=== PATIENT | female | born 1950 | race Caucasian/White ===

== ENCOUNTER 2018-08-28 05:56 | Inpatient (IN) ==
[2018-08-28] MEDS ORDERED: Chlorhexidine Gluconate 2% 1 Pack (2 Cloths) TOPICAL ONE (06:27)
[2018-08-28] MEDS ORDERED: Metoprolol Tartrate 25 MG Tablet PO ONE (06:27)
[2018-08-28] MEDS ORDERED: Sodium Chlor 0.9% Inj 500 ML IV.SIG SCH (07:00)
[2018-08-28] MEDS ORDERED: Vancomycin Inj 1,000 MG in Sodium Chlor 0.9% Inj 250 ML IV.SIG SCH (07:00)
[2018-08-28] MEDS ORDERED: Bupivacaine/Epinephrine 0.5% Inj 50 ML Vial ONE (07:25)
[2018-08-28] MEDS ORDERED: Thrombin Topical Soln 5,000 UNIT Vial TOPICAL ONE (07:25)
[2018-08-28] MEDS ORDERED: Gelatin Size 100 Topical Foam ONE (07:25)
[2018-08-28] MEDS ORDERED: Neostigmine Inj 5 MG/5 ML Syringe IV.PUSH ONE (08:35)
[2018-08-28] MEDS ORDERED: Normosol-R pH 7.4 Inj 1,000 ML IV.CONT ONE (08:35)
[2018-08-28] MEDS ORDERED: Phenylephrine/NS 1000 MCG/10ML Syringe IV.PUSH ONE (08:35)
[2018-08-28] MEDS ORDERED: Glycopyrrolate Inj 1 MG/5 ML Syringe IV.PUSH ONE (08:35)
[2018-08-28] MEDS ORDERED: Lidocaine PF 1% Inj 5 ML Syringe OTHER ONE (08:35)
[2018-08-28] MEDS: Sod Chloride 0.9% Inj 1,000 ML IV.SIG SCH (11:34)
[2018-08-28] MEDS ORDERED: Menthol 5.8 MG Lozenge BUCCAL PRN (12:15)
[2018-08-28] MEDS ORDERED: Acetaminophen 325 MG Tablet PO PRN (12:15)
[2018-08-28] MEDS ORDERED: Calcium Gluconate Inj 1 GM in Sodium Chlor 0.9% Inj 100 ML IV.SIG PRN (12:15)
[2018-08-28] MEDS ORDERED: Potassium Chlor 20 mEq Premix 20 MEQ/100 ML PIGGYBACK IV.SIG PRN (12:15)
[2018-08-28] MEDS ORDERED: Magnesium Sulfate Inj 2 GM in Sodium Chlor 0.9% Inj 96 ML IV.SIG PRN (12:15)
[2018-08-28] MEDS ORDERED: Morphine Inj 4 MG/ML Vial IV.PUSH PRN (12:15)
[2018-08-28] MEDS ORDERED: Aluminum/Magnesium/Simethacone Susp 30 ML UDC PO PRN (12:15)
[2018-08-28] MEDS ORDERED: Bisacodyl 10 MG Supp RECTAL PRN (12:15)
[2018-08-28] MEDS ORDERED: fentaNYL Citrate Inj 100 MCG/2 ML Ampul ONE (12:20)
--- NOTE | 2018-08-28 12:27 | P.OP ---
- Preoperative Diagnosis (1) Chronic low back pain with bilateral sciatica (2) Lumbar stenosis with neurogenic claudication (3) Lumbar degenerative disc disease (4) Spondylolisthesis, lumbar region (5) Lumbar facet arthropathy Date of procedure: 08/28/18 Procedure: Lumbar L4-5 transforaminal interbody fusion; bilateral L4-5 decompressive laminotomy with medial facetectomy; L4-5 pedicle screw fixation; L4-5 interbody cage placement; microsurgical technique Anesthesia: GETA Surgeon: Martin Salmon MD Automatic Drill Operator: Judie Toney Estimated blood loss (mL): 50 Operation and Findings: This was a difficult case due to the patient body habitus and morbid obesity. The [id number] details of the procedure, indications, alternatives, risks and potential complications were fully discussed with the patient. The patient fully understood. All the questions were answered. No guarantees were given. The patient voiced requesting the procedure and provided informed consents. The patient was offered the alternative of delaying the procedure and continuing with nonsurgical management. Prior to the procedure, the surgical incision was marked in the preoperative surgical holding room, and the procedure, risks, and potential complications revisited with the patient. Placement of electrodes for intraoperative neurophysiological monitoring was completed. The patient was taken to the operative room, and following induction of general anesthesia, endotracheal intubation was performed. A Leahy catheter, bilateral POPEYE hose and sequential compression devices were placed and kept throughout the procedure. The patient was positioned prone, over a Sina table over a Neal frame. All pressure in the preoperative surgical holding room points were carefully padded. The eyes were tapped shut after ointment was applied by the anesthesiologist to prevent corneal abrasion. A Kalpesh hugger was placed over the exposed lower body to maintain control of the core body temperature. The lumbar region was prepped and draped in the usual sterile fashion. Once the patient was positioned, a localizing cross-table lateral x-ray was performed with a C-arm. A right paramedian incision was outlined on the skin approximately 3cm from the midline. The skin incision made with a #10 blade. Small bleeders were controlled with the cautery. The dissection was then carried out into deeper planes and through the thoracolumbar fascia with a Bovie. The intermuscular septum was identified and the muscles were blunted dissected along the septum. The facets and transverse process at the right L4-5 levels were exposed and the proper anatomical landmarks were identified. A microsurgical self-retaining retractor was placed on the incision, and a localizing lateralizing cross-table x-ray was performed. Intraoperative microscope magnification used for further dissection. There was significant facet and ligamentum flavum hypertrophy noted. The right L4-5 facet was resected with a drill bit along with the lamina and there was severe foraminal and lateral recess stenosis from hypertrophied ligamentum flavum and facet which was decompressed. With gentle thecal sac retraction from the left L4-5 laminotomies the hypertrophied right L4-5 ligamentum flavum and facet were also resected with Kerrisons and the lateral recess/spinal canal decompressed circumferentially. There was disc height collapse with the spondylolisthesis from the degeneration along with disc protrusion also leading to the foraminal stenosis. Epidural hemostasis was achieved with bipolar cautery and Gelfoam with thrombin. Subsequently entered into the disc space at the L4-5 level with a #15 blade and lorie were used for discectomy. I then placed PEEK cage packed with local autograft bone and more local autograft bone was packed adjacent to the cage in interspace for added interbody fusion. With placement of the cage, I was able to distract the interspace and opened up the foramen further bilaterally. Subsequently in order to facilitate the fusion and provide stabilization, pedicle screw fixation was undertaken using [place] spine screws on entry point at the right L4 and L5 level at the junction of the transverse process and facet through the pedicles into the body. Subsequently using AP and lateral fluoroscopy tap and screw placement. The screws were then connected with a reilly and locked in place with caps. The construct appeared very secure at this point. The area was then copiously irrigated with Vancomycin solution and powder. The retractors were removed and the bipolar cautery used for hemostasis. The muscle fascia was then approximated using 2-0 Vicryl interrupted stitches and then 3-0 Vicryl subcuticular stitches also placed in interrupted fashion. The final skin closure was completed with Mastisol and Steri-Strips. A sterile dressing was then applied. The patient then turned in supine position, extubated and taken to recovery room. There were no intraoperative complications. All sponge and needle counts were correct at the end of procedure. Estimated blood loss about 50 ml.
[2018-08-28] MEDS ORDERED: *morphine SULFATE 4 MG/ML PERIprocedure ONLY ONE ×2 (12:44→14:01)
--- NOTE | 2018-08-28 13:40 | XR ---
EXAM DATE: 08/28/2018 12:00 AM EDT AGE/SEX: 67 years / Female INDICATIONS: Post-op L4-L5 posterior lumbar fusion. CLINICAL DATA: This is the patient's initial encounter. Patient reports that signs and symptoms have been present for 1 day and indicates a pain score of Nonresponsive. MEDICAL/SURGICAL HISTORY: Non-responsive. Non-responsive. COMPARISON: No prior exams available for comparison. FINDINGS: 2 fluoroscopic images of the lower lumbar spine demonstrate intradiscal and left transpedicular screw and reilly fixation at L4-5. Hardware appears grossly well-positioned and intact. Vertebral body height s are maintained. Sagittal alignment is grossly intact. CONCLUSION: 1. Posterior L4-5 fixation, as above. Electronically signed by: Jah Martinez MD 08/28/2018 1:39 PM EDT
[2018-08-28] MEDS: Sod Chloride 0.9% Inj 1,000 ML IV.CONT SCH ×2 (15:01→23:30)
[2018-08-28 17:26] LABS: Baso % (Auto) 0.2 % (0.0-2.0); Hematocrit 36.3 % (35.0-46.0); Hemoglobin 12.8 gm/dL (11.6-15.3); Lymph # (Auto) 0.7 th/mm3 (1.0-4.8); Lymph % (Auto) 7.8 % (9.0-44.0); Mean Corpuscular HGB Conc 35.2 % (32.0-36.0); Mean Corpuscular Hemoglobin 33.9 pg (27.0-34.0); Mean Corpuscular Volume 96.3 fL (80.0-100.0); Mean Platelet Volume 8.9 fL (7.0-11.0); Mono # (Auto) 0.5 th/mm3 (0.0-0.9); Mono % (Auto) 5.3 % (0.0-8.0); Neut # (Auto) 8.2 th/mm3 (1.8-7.7); Neut % (Auto) 86.7 % (16.0-70.0); Platelet Count 248 th/mm3 (150-450); Red Blood Count 3.77 mil/mm3 (4.00-5.30); Red Cell Distribution Width 13.3 % (11.6-17.2); White Blood Count 9.5 th/mm3 (4.0-11.0)
[2018-08-28 17:41] LABS: Anion Gap 3 meq/L (5-15); Blood Urea Nitrogen 9 mg/dL (7-18); Calcium 8.1 mg/dL (8.5-10.1); Carbon Dioxide 26.7 meq/L (21.0-32.0); Chloride 108 meq/L (98-107); Glomerular Filtration Rate Greater Than 89 mL/min (>89); Glucose,Random 153 mg/dL (74-106); Potassium 3.7 meq/L (3.5-5.1); Sodium 138 meq/L (136-145)
[2018-08-28] MEDS: Senna/Docusate Sodium 8.6/50 MG Tablet PO SCH (20:47)
[2018-08-28] MEDS ORDERED: Zolpidem Tartrate 5 MG Tablet PO PRN (21:00)
[2018-08-29] MEDS: amLODIPine 5 MG Tablet PO SCH (08:22)
[2018-08-29] MEDS: Pantoprazole Sodium 20 MG DR Tablet PO SCH (08:23)
[2018-08-29] MEDS: Senna/Docusate Sodium 8.6/50 MG Tablet PO SCH ×2 (08:23→21:08)
[2018-08-29] MEDS: Sod Chloride 0.9% Inj 1,000 ML IV.CONT SCH (08:27)
[2018-08-29] MEDS: Sod Chloride 0.9% Inj 1,000 ML IV.SIG SCH (08:28)
--- NOTE | 2018-08-29 10:30 | P.PNNS ---
Subjective Interval history: Pt s/p L4/L5 TLIF with cage and pedicle screw fixation. No radiculopathy in LEs. Pt with incisional soreness. Two pills of Alma causes nausea. Physical Exam Vital signs: Vital Signs 08/28/18 12:12 08/28/18 12:30 08/28/18 12:45 Temperature 97.6 F Pulse Rate 90 80 78 Respiratory Rate 18 18 18 Blood Pressure 112/59 L 110/58 L 113/66 Pulse Oximetry 96 96 96 08/28/18 13:00 08/28/18 13:15 08/28/18 14:00 Temperature Pulse Rate 74 80 79 Respiratory Rate 18 18 18 Blood Pressure 107/55 L 104/55 L 103/59 L Pulse Oximetry 96 96 96 08/28/18 14:50 08/28/18 15:32 08/28/18 16:56 Temperature 97.6 F 97.1 F L Pulse Rate 77 72 Respiratory Rate 18 18 16 Blood Pressure 107/58 L 188/57 H Pulse Oximetry 96 97 08/28/18 20:00 08/28/18 20:49 08/29/18 00:00 Temperature 97.3 F L 98.3 F Pulse Rate 70 66 Respiratory Rate 16 16 17 Blood Pressure 104/57 L 102/62 Pulse Oximetry 98 98 08/29/18 03:39 08/29/18 03:40 08/29/18 03:51 Temperature 97.4 F L 97.4 F L Pulse Rate 63 63 Respiratory Rate 20 18 20 Blood Pressure 114/62 114/62 Pulse Oximetry 98 08/29/18 08:00 08/29/18 08:53 Temperature 97.7 F Pulse Rate 61 Respiratory Rate 16 18 Blood Pressure 102/56 L Pulse Oximetry 96 Intake & Output 08/28/18 08/29/18 08/29/18 18:59 06:59 18:59 Intake Total 2050 / 2050 1100 / 1100 1100 / 1100 Output Total 1075 / 1075 800 / 800 Balance 975 / 975 300 / 300 1100 / 1100 Weight 62.8 kg Intake: IV 1350 / 1350 1100 / 1100 1100 / 1100 NS Inj 1,000 ML @ 100 mls/hr IV 1000 / 1000 1000 / 1000 .CONT .Q10H ALL Rx#:[id number] LR 1000 mL Inj 1,000 ML @ 30 1000 / 1000 mls/hr IV.SIG .Q24H ALL Rx#: [id number] Vancomycin Inj 1,000 MG In NS 250 / 250 Inj 250 ML @ 250 mls/hr IV.SIG [employer]TE[employer]OR ALL Rx#:[id number] Ancef Inj 1,000 MG In NS Inj 100 / 100 100 / 100 100 / 100 100 ML @ 200 mls/hr IV.SIG Q8H ALL Rx#:[id number] Anesthesia Amount 700 / 700 Output: Estimated Blood Loss 50 / 50 Urine Amount (Catheter) 1025 / 1025 800 / 800 Indwelling Urethral Catheter 1025 / 1025 800 / 800 Other: # Voids 1 Date of Last Bowel Movement 08/27/18 08/27/18 - Constitutional no acute distress, cooperative - Routine HEENT Exam Head: Present: normocephalic Eye: Present: PERRL. Absent: conjunctival icterus - Routine Neck Exam Present: trachea midline - Routine Respiratory Exam Present: CTA bilaterally. Absent: respiratory distress, rhonchi, wheezes - Routine Cardiovascular Exam Present: RRR, S1, S2. Absent: murmur - Routine Abdominal Exam Present: soft, normoactive bowel sounds. Absent: distended, firm - Routine Skin Exam Absent: cyanosis, erythema Comments: Pt log rolled and incision clean and dry without signs of infection or complication. New bandage placed. - Routine Neurological Exam Present: alert, moving all extremities, normal speech. Absent: sensory deficit , motor deficit, altered mental status - Routine Psychiatric Exam Present: normal affect, cooperative. Absent: anxious, agitated - Urinary Catheter Management Indwelling Urethral Catheter Cath placed during this visit: yes, but has since been removed by the nurse Reason for continuing: Decision to DC catheter Insertion date: 08/28/18 Insertion time: 08:45 Removal date: 08/29/18 Removal time: 05:55 Assessment and Plan - Assessment (1) Lumbar stenosis with neurogenic claudication Code(s): M48.062 - Spinal stenosis, lumbar region with neurogenic claudication Status: Chronic (2) Lumbar degenerative disc disease Code(s): M51.36 - Other intervertebral disc degeneration, lumbar region Status : Chronic (3) Chronic low back pain with bilateral sciatica Code(s): M54.41 - Lumbago with sciatica, right side; M54.42 - Lumbago with sciatica, left side; G89.29 - Other chronic pain Status: Chronic (4) Spondylolisthesis, lumbar region Code(s): M43.16 - Spondylolisthesis, lumbar region Status: Chronic (5) Lumbar facet arthropathy Code(s): M47.816 - Spondylosis without myelopathy or radiculopathy, lumbar region Status: Chronic - Plan A: 67 y/o FM s/p L4/L5 TLIF with cage and pedicle screw fixation. Pt complains of incisional pain. She cannot take two Alma as they make her nauseated. P: Dr. Salmon approved d/c two norco and prescribe Alma q 3 hours instead of q 4. Continue with PT Continue with incisional care.
--- NOTE | 2018-08-30 09:11 | P.PNNS ---
Subjective Interval history: Pt awake and alert. Sitting up in chair. Complains of right anterior leg pain and incisional pain. Complains of thoracic area muscle spasms. <Esau De León - Last Filed: 08/30/18 09:07> Physical Exam Vital signs: Vital Signs 08/29/18 12:00 08/29/18 12:29 08/29/18 15:45 Temperature 97.4 F L Pulse Rate 61 Respiratory Rate 16 18 18 Blood Pressure 96/58 L Pulse Oximetry 95 08/29/18 16:00 08/29/18 19:41 08/29/18 19:48 Temperature 98.1 F 97.7 F Pulse Rate 70 75 Respiratory Rate 16 17 18 Blood Pressure 98/59 L 96/54 L Pulse Oximetry 94 L 92 L 08/29/18 23:24 08/30/18 05:01 Temperature 98.8 F Pulse Rate 77 Respiratory Rate 17 18 Blood Pressure 101/63 Pulse Oximetry 95 Intake & Output 08/29/18 08/30/18 08/30/18 18:59 06:59 18:59 Intake Total 1520 / 1520 480 / 480 Balance 1520 / 1520 480 / 480 Weight 62.8 kg Intake: IV 1100 / 1100 NS Inj 1,000 ML @ 100 mls/hr IV 1000 / 1000 .CONT .Q10H ALL Rx#:[id number] Ancef Inj 1,000 MG In NS Inj 100 / 100 100 ML @ 200 mls/hr IV.SIG Q8H ALL Rx#:[id number] Oral 420 / 420 480 / 480 Other: # Voids 2 1 Date of Last Bowel Movement 08/27/18 # Bowel Movements 0 0 - Constitutional no acute distress, average body habitus, cooperative - Routine HEENT Exam Head: Present: normocephalic Eye: Present: PERRL. Absent: conjunctival icterus ENT: Present: oropharynx clear - Routine Respiratory Exam Present: CTA bilaterally. Absent: respiratory distress, rhonchi, wheezes - Routine Cardiovascular Exam Present: RRR, S1, S2. Absent: murmur - Routine Abdominal Exam Present: soft, normoactive bowel sounds. Absent: distended, firm - Routine Skin Exam Absent: cyanosis, erythema - Routine Neurological Exam Present: alert, moving all extremities, normal speech. Absent: sensory deficit , motor deficit, altered mental status - Routine Psychiatric Exam Present: normal affect, cooperative. Absent: anxious, agitated - Urinary Catheter Management Indwelling Urethral Catheter Cath placed during this visit: yes, but has since been removed by the nurse Reason for continuing: Decision to DC catheter Insertion date: 08/28/18 Insertion time: 08:45 Removal date: 08/29/18 Removal time: 05:55 <Esau De León - Last Filed: 08/30/18 09:07> Vital signs: Vital Signs 08/29/18 19:41 08/29/18 19:48 08/29/18 23:24 Temperature 97.7 F 98.8 F Pulse Rate 75 77 Respiratory Rate 17 18 17 Blood Pressure 96/54 L 101/63 Pulse Oximetry 92 L 95 08/30/18 05:01 08/30/18 08:00 08/30/18 12:00 Temperature 99.6 F 98 F Pulse Rate 80 72 Respiratory Rate 18 18 16 Blood Pressure 113/57 L 97/53 L Pulse Oximetry 94 L 95 08/30/18 15:49 Temperature 98.1 F Pulse Rate 66 Respiratory Rate 18 Blood Pressure 94/51 L Pulse Oximetry 94 L Intake & Output 08/29/18 08/30/18 08/30/18 18:59 06:59 18:59 Intake Total 1520 / 1520 480 / 480 Balance 1520 / 1520 480 / 480 Weight 62.8 kg Intake: IV 1100 / 1100 NS Inj 1,000 ML @ 100 mls/hr IV 1000 / 1000 .CONT .Q10H ALL Rx#:[id number] Ancef Inj 1,000 MG In NS Inj 100 / 100 100 ML @ 200 mls/hr IV.SIG Q8H ALL Rx#:[id number] Oral 420 / 420 480 / 480 Other: # Voids 2 1 Date of Last Bowel Movement 08/27/18 08/27/18 # Bowel Movements 0 0 - Urinary Catheter Management Indwelling Urethral Catheter Cath placed during this visit: no <Martin Salmon - Last Filed: 08/30/18 16:59> Assessment and Plan - Assessment (1) Lumbar stenosis with neurogenic claudication Code(s): M48.062 - Spinal stenosis, lumbar region with neurogenic claudication Status: Chronic (2) Lumbar degenerative disc disease Code(s): M51.36 - Other intervertebral disc degeneration, lumbar region Status : Chronic (3) Chronic low back pain with bilateral sciatica Code(s): M54.41 - Lumbago with sciatica, right side; M54.42 - Lumbago with sciatica, left side; G89.29 - Other chronic pain Status: Chronic (4) Spondylolisthesis, lumbar region Code(s): M43.16 - Spondylolisthesis, lumbar region Status: Chronic (5) Lumbar facet arthropathy Code(s): M47.816 - Spondylosis without myelopathy or radiculopathy, lumbar region Status: Chronic - Plan A: 67 y/o FM s/p L4/L5 TLIF with cage and pedicle screw fixation. Pt complains of incisional pain and right anterior thigh pain. P: Will give pt one shot of Toradol today and start Gabapentin tonight. Continue with PT Continue with incisional care. Anticipate discharge tomorrow. <Esau De León - Last Filed: 08/30/18 09:07> - Attending Attestation The exam, history, and the medical decision-making described in the above note were completed with the assistance of the mid-level provider. I reviewed and agree with the findings presented. I attest that I had a [id number] encounter with the patient on the same day, and personally performed and documented my assessment and findings in the medical record. <Martin Salmon - Last Filed: 08/30/18 16:59>
[2018-08-30] MEDS: amLODIPine 5 MG Tablet PO SCH (11:40)
[2018-08-30] MEDS: Senna/Docusate Sodium 8.6/50 MG Tablet PO SCH ×2 (11:40→20:06)
[2018-08-30] MEDS: Pantoprazole Sodium 20 MG DR Tablet PO SCH (11:40)
[2018-08-30] MEDS: Sod Chloride 0.9% Inj 1,000 ML IV.SIG SCH (19:59)
[2018-08-30] MEDS: Gabapentin 300 MG Capsule PO SCH (20:06)
[2018-08-31] MEDS: Sod Chloride 0.9% Inj 1,000 ML IV.SIG SCH (07:19)
[2018-08-31] MEDS: Pantoprazole Sodium 20 MG DR Tablet PO SCH (08:10)
[2018-08-31] MEDS: Senna/Docusate Sodium 8.6/50 MG Tablet PO SCH ×2 (08:10→21:24)
[2018-08-31] MEDS: amLODIPine 5 MG Tablet PO SCH (10:23)
--- NOTE | 2018-08-31 21:01 | XR ---
EXAM DATE: 08/31/2018 12:00 AM EDT AGE/SEX: 67 years / Female INDICATIONS: Post laminectomy pain. Laminectomy 08/28 CLINICAL DATA: This is the patient's subsequent encounter. Patient reports that signs and symptoms h ave been present for 2 days and indicates a pain score of 10/10. MEDICAL/SURGICAL HISTORY: . Hypertension. . Cholecystectomy. Hysterectomy COMPARISON: No prior exams available for comparison. FINDINGS: Previous fusion across L4-5. Osteopenia. Mild rotatory levoscoliosis. No acute fracture. No spondylol isthesis. Moderate to severe degenerative disc disease at T12-L1. CONCLUSION: No acute bony abnormality. Previous right-sided pedicle screw and reilly fixation across L4-5 with right -sided laminectomy. Bones appear osteopenic. No acute fracture. Electronically signed by: Mayur Welsh MD 08/31/2018 9:00 PM EDT
[2018-08-31] MEDS: Gabapentin 300 MG Capsule PO SCH ×2 (21:24→21:25)
--- NOTE | 2018-08-31 21:52 | CT ---
EXAM DATE: 08/31/2018 8:44 PM EDT AGE/SEX: 67 years / Female INDICATIONS: Lower back pain, radiculopathy. CLINICAL DATA: This is the patient's initial encounter. Patient reports that signs and symptoms have been present for 1 day and indicates a pain score of 10/10. MEDICAL/SURGICAL HISTORY: Hypertension. Gastroesophageal reflux disease. Spinal stenosis. Herniate d disc. Degenerative Disc Disease. Scoliosis. Hysterectomy. Cholecystectomy. Fusion, lumbar. RADIATION DOSE: 33.90 CTDI (mGy) COMPARISON: [facility] – [place], [place] ABDOMEN & PELVIS W/O CONTRAST, 08/18/2018. . TECHNIQUE: Contiguous axial images were acquired with a multirow detector CT scanner without contras t. Multiplanar reconstructions in the sagittal and coronal plane were also performed. Using automate d exposure control and adjustment of the mA and/or kV according to patient size, radiation dose was k ept as low as reasonably achievable to obtain optimal diagnostic quality images. DICOM format image data is available electronically for review and comparison. FINDINGS: There is mild levoconvex curvature centered around L2. Approximately 4 mm of degenerative retrolisthe sis at T12/L1. No acute fractures or other subluxations are demonstrated of the lumbar spine. Vertebr al bodies have normal height. T12-L1: The disc has moderate loss of height and vacuum phenomena. There are are sclerotic changes o f vertebral body endplates. Grade 1 degenerative retrolisthesis. There is a small to moderate, circum ferential disc osteophyte complex and mild bilateral facet osteoarthritis. There is mild spinal steno sis. There is severe right and moderate to severe left foraminal stenosis. L1-L2: The disc has slight loss of height. There is diffuse bulging of the disc annulus and moderate bilateral facet osteoarthritis with thickening of the ligamentum flavum. There is mild spinal stenos is. There is mild bilateral foraminal stenosis. L2-L3: The disc has slight loss of height. There is diffuse bulging of the disc annulus and moderate bilateral facet osteoarthritis with thickening of the ligamentum flavum. There is mild spinal stenos is and mild to moderate right, mild left foraminal stenosis. L3-L4: The disc has mild loss of height. There is diffuse bulging of the disc annulus and moderate b ilateral facet osteoarthritis and thickening of the ligamentum flavum is mild spinal stenosis and mil d bilateral foraminal stenosis.. L4-L5: Recent fusion with interbody and right posterior instrumentation. Alignment is near-anatomic. Right hemilaminectomy changes are noted. There is an approximately 2.1 cm collection of fluid and a few small bubbles of gas in the bony resection bed, for example series 310 image 24 and series 306 im age 25. There is associated mild mass effect on the right side of the thecal sac. There appears to be more significant mass effect in the region of the right foramen and concerning for associated imping ement of the exiting right L4 nerve root. Degenerative changes contribute to mild left foraminal sten osis. L5-S1: Disc height within normal limits. There is diffuse bulging of the disc annulus and moderate b ilateral facet osteoarthritis with thickening of the ligamentum flavum. No significant spinal stenosi s. There is mild bilateral foraminal stenosis. CONCLUSION: 1. Recent fusion and right hemilaminectomy changes at L4/L5 as described. In the hemilaminectomy becca gical bed is an approximately 2.1 cm fluid collection and a few bubbles of gas, presumably seroma, wi th associated mass effect on the right L4/L5 foramen and to a much lesser extent the right side of th e thecal sac. 2. Other findings appear chronic/degenerative. Considerable degrees of foraminal stenosis are noted, especially T12/L1. Generally only mild degrees of spinal stenosis. Electronically signed by: Yohannes Molina MD 08/31/2018 9:50 PM EDT
[2018-09-01] MEDS: Sod Chloride 0.9% Inj 1,000 ML IV.SIG SCH (05:32)
[2018-09-01] MEDS: Pantoprazole Sodium 20 MG DR Tablet PO SCH ×2 (07:35→09:35)
[2018-09-01] MEDS: Gabapentin 300 MG Capsule PO SCH ×4 (07:35→17:22)
[2018-09-01] MEDS: Senna/Docusate Sodium 8.6/50 MG Tablet PO SCH ×3 (07:35→21:22)
[2018-09-01] MEDS: amLODIPine 5 MG Tablet PO SCH (09:35)
--- NOTE | 2018-09-01 12:13 | P.PNNS ---
Subjective Interval history: Significant right leg paresthetic pain develops when she is upright particularly. Imaging shows stable hardare right L4/5 without complication. Possible small fluid collection irritating nerve root Physical Exam Vital signs: Vital Signs 08/31/18 13:44 08/31/18 16:00 08/31/18 17:48 Temperature 97.7 F Pulse Rate 72 Respiratory Rate 18 18 18 Blood Pressure 103/62 Pulse Oximetry 96 08/31/18 20:00 08/31/18 21:54 08/31/18 23:02 Temperature 97.9 F Pulse Rate 69 Respiratory Rate 15 18 17 Blood Pressure 103/58 L Pulse Oximetry 95 09/01/18 00:00 09/01/18 02:00 09/01/18 05:04 Temperature 97.8 F Pulse Rate 71 Respiratory Rate 15 18 17 Blood Pressure 99/57 L Pulse Oximetry 96 09/01/18 07:35 09/01/18 08:00 09/01/18 09:33 Temperature 98.2 F Pulse Rate 68 Respiratory Rate 18 16 18 Blood Pressure 117/62 Pulse Oximetry 92 L 09/01/18 11:23 Temperature Pulse Rate Respiratory Rate 18 Blood Pressure Pulse Oximetry Intake & Output 08/31/18 09/01/18 09/01/18 18:59 06:59 18:59 Intake Total 420 / 420 250 / 250 Balance 420 / 420 250 / 250 Weight 63 kg Intake: Oral 420 / 420 250 / 250 Other: # Voids 4 Date of Last Bowel Movement 08/31/18 08/31/18 08/31/18 # Bowel Movements 0 1 - Urinary Catheter Management Indwelling Urethral Catheter Cath placed during this visit: yes, but has since been removed by the nurse Reason for continuing: Decision to DC catheter Insertion date: 08/28/18 Insertion time: 08:45 Removal date: 08/29/18 Removal time: 05:55 Assessment and Plan - Plan A: 67 y/o FM s/p L4/L5 TLIF with cage and pedicle screw fixation. Pt complains of incisional pain and right anterior thigh pain. Tests to full strength on exam though is limited in ability to work with PT today and yesterday. P: Will give pt one shot of Decadron 4mg today and increase Gabapentin to 300mg TID. Toradol helped on Wed 08/30 but not on Priyanka 08/31. Continue with PT Continue with incisional care. Would like to get pain under better control, d/w Dr. Salmon
[2018-09-02] MEDS: Sod Chloride 0.9% Inj 1,000 ML IV.SIG SCH (08:16)
[2018-09-02] MEDS: amLODIPine 5 MG Tablet PO SCH (08:43)
[2018-09-02] MEDS: Pantoprazole Sodium 20 MG DR Tablet PO SCH (08:43)
[2018-09-02] MEDS: Gabapentin 300 MG Capsule PO SCH (08:43)
[2018-09-02] MEDS: Senna/Docusate Sodium 8.6/50 MG Tablet PO SCH (08:43)
[2018-09-02 09:14] VITALS: BP 145/70; PULSE 75; RESP 18; TEMP 98.7; O2SAT 97
== END 2018-09-02 10:49 | disposition home or self-care (01) ==
LOC: HSDI 05:56 → N06 15:55
PROVIDERS: ADMIT Neurological Surgery; ATTEND Neurological Surgery
PROC: LAMPLIF (2018-08-28 08:35)